=== PATIENT | male | born 1955 | race Caucasian/White ===

== ENCOUNTER 2021-10-14 21:50 | Observation (INO) | payer OTHER ==
[~2021-10-14] VITALS: Ht 180.3 cm; Wt 82.2 kg
[~2021-10-14 21:50] MED LIST: HYDACE5 PO; NAPR550 PO; OXYC5; Zithromax250 MG PO
[2021-10-14] MEDS ORDERED: Lisinopril2.5 MG PO (22:14)
[2021-10-14] MEDS ORDERED: PREGABALIN100 MG PO (22:15)
[2021-10-14] MEDS ORDERED: CYMBALTA30 M2 PO (22:15)
[2021-10-14] MEDS ORDERED: TAMSULOSIN HCL0.4 M1 PO (22:15)
[2021-10-14] MEDS ORDERED: TADALAFIL5 M1 PO (22:15)
[2021-10-14] MEDS ORDERED: METOPROLOL SUCC25 MG PO (22:15)
[2021-10-14 22:39] LABS: BASOPHILS ABSOLUTE AUTO 0.03 K/mm3 (0.00-0.23); BASOPHILS PERCENT AUTO 1 % (0-2); EOSINOPHILS ABSOLUTE AUTO 0.04 K/mm3 (0.00-0.68); EOSINOPHILS PERCENT AUTO 1 % (0-6); Hematocrit 35.5 % (37.0-53.0); Hemoglobin 12.1 g/dL (13.5-17.5); IMMATURE GRAN ABSOLUTE AUTO 0.04 K/mm3 (0.00-0.10); IMMATURE GRAN PERCENT AUTO 1 % (0-1); LYMPHOCYTES ABSOLUTE AUTO 1.66 K/mm3 (0.84-5.20); LYMPHOCYTES PERCENT AUTO 26 % (21-46); MONOCYTES ABSOLUTE AUTO 0.66 K/mm3 (0.16-1.47); MONOCYTES PERCENT AUTO 11 % (4-13); Mean Corpuscular HGB Conc 34.1 g/dL (31.5-36.5); Mean Corpuscular Volume 91 fL (80-100); Mean Platelet Volume 10.6 fL (9.1-12.4); NEUTROPHILS ABSOLUTE AUTO 3.85 K/mm3 (1.96-9.15); NEUTROPHILS PERCENT AUTO 61 % (41-73); Platelet Count 266 K/mm3 (150-400); RDW Coefficient Variation 14.9 % (11.7-14.2); RDW Standard Deviation 50.3 fL (35.1-46.3); White Blood Cell Count 6.28 K/mm3 (4.00-11.30)
[2021-10-14 23:08] LABS: Alanine Aminotransfer (ALT/SGP 45 U/L (12-78); Albumin, Blood 3.6 g/dL (3.4-5.0); Albumin/Globulin Ratio 0.9 (0.8-1.8); Alk Phos 69 U/L (50-136); Anion Gap 5 mmol/L (6-16); Aspartate Aminotrans (AST/SGOT 28 U/L (12-37); Bilirubin, Total 0.2 mg/dL (0.1-1.0); Blood Urea Nitrogen 9 mg/dL (8-24); Bun/Creatinine Ratio 11.8 (12.0-20.0); CO2, Blood 26 mmol/L (21-32); Calcium, Blood 8.7 mg/dL (8.5-10.1); Chloride, Blood 103 mmol/L (98-108); Creatinine, Blood 0.76 mg/dL (0.60-1.20); Ethanol (Alcohol), Blood, Med <3 mg/dL; Globulin, Blood 3.9 g/dL (2.2-4.0); Glomerular Filtration Rate 99 (60-); Glucose, Blood 115 mg/dL (70-99); Potassium, Blood 4.3 mmol/L (3.5-5.5); Sodium, Blood 134 mmol/L (136-145); Total Protein, Blood 7.5 g/dL (6.4-8.2)
[2021-10-15 00:02] LABS: U Amphetamine Screen Not Detected; U Barbituate Screen Not Detected; U Benzodiazapine Screen Not Detected; U Buprenorphine Screen Not Detected; U Cannabinoids Screen DETECTED; U Cocaine Screen Not Detected; U Methadone Screen Not Detected; U Methamphetamine Screen Not Detected; U Opiates Screen Not Detected; U Oxycodone Screen Not Detected; U Phencyclidine Screen Not Detected; U Propoxyphene Screen Not Detected
[2021-10-15 00:25] LABS: International Normalized Ratio 1.03; Prothrombin Time Results 10.8 Sec (9.7-11.5)
[2021-10-15 01:36] LABS: CHOL/HDL RATIO 2.7; Cholesterol 121 mg/dL (50-200); HDL Cholesterol 45 mg/dL (>39); LDL/HDL RATIO 1.1; Low Density Lipoprotein Chol 52 mg/dL (0-110); Triglycerides 122 mg/dL (30-160); Very Low Density Lipoprot Chol 24 mg/dL (6-32)
[2021-10-16 04:46] LABS: Hematocrit 37.5 % (37.0-53.0); Hemoglobin 12.4 g/dL (13.5-17.5)
[2021-10-16 05:09] LABS: Bun/Creatinine Ratio 11.4 (12.0-20.0); Creatinine, Blood 0.88 mg/dL (0.60-1.20); Potassium, Blood 4.5 mmol/L (3.5-5.5)
[2021-10-16] MEDS ORDERED: Acetaminophen325 M1 PO (15:32)
[2021-10-16] MEDS ORDERED: XARELTO15 MG PO (15:33)
[2021-10-16] MEDS ORDERED: ATOR80 PO (15:33)
== END 2021-10-16 16:16 | disposition home or self-care (01) ==
LOC: ER 21:50 → ERHOLD 21:51 → MEDS 10-15 13:00
PROVIDERS: Internal Medicine; Student in an Organized Health Care Education/Training Program; ADMIT Family Medicine
DX: I63.9 Cerebral infarction, unspecified (principal); R47.1 Dysarthria and anarthria; R20.0 Anesthesia of skin; I10 Essential (primary) hypertension; N40.0 Benign prostatic hyperplasia without lower urinary tract symptoms; I48.0 Paroxysmal atrial fibrillation; G81.91 Hemiplegia, unspecified affecting right dominant side; R47.81 Slurred speech; Z79.82 Long term (current) use of aspirin; F17.210 Nicotine dependence, cigarettes, uncomplicated; F10.11 Alcohol abuse, in remission
CPT/HCPCS: 36415; 70450; 70496; 70498; 70551; 80048; 80053; 80061; 83735; 85014; 85018; 85025; 85610; 85730; 92526; 92610; 93005; 93010; 93306; 96372; 97110; 97112; 97116; 97162; 97166; 99285-25; A9270; G0378; G0480; J1650; Q9967

== ENCOUNTER 2022-03-30 07:03 | Day surgery (SDC) | payer OTHER ==
[~2022-03-30] VITALS: Ht 177.8 cm; Wt 87.4 kg
[~2022-03-30 07:03] MED LIST changes: +ATOR80 PO; +Acetaminophen325 M1 PO; +CYMBALTA30 M2 PO; +Lisinopril2.5 MG PO; +METOPROLOL SUCC25 MG PO; +PREGABALIN100 MG PO; +TADALAFIL5 M1 PO; +TAMSULOSIN HCL0.4 M1 PO; +XARELTO15 MG PO
== END 2022-03-30 09:09 | disposition home or self-care (01) ==
LOC: ORSCSDS 07:03
PROVIDERS: Internal Medicine Gastroenterology
PROC: 0DJ08ZZ Inspection of Upper Intestinal Tract, Via Natural or Artificial Opening Endoscopic (ICD-10-PCS; principal; 2022-03-30 08:30)
DX: R93.3 Abnormal findings on diagnostic imaging of other parts of digestive tract (principal); Z86.73 Personal history of transient ischemic attack (TIA), and cerebral infarction without residual deficits; Z80.0 Family history of malignant neoplasm of digestive organs; K44.9 Diaphragmatic hernia without obstruction or gangrene; I10 Essential (primary) hypertension; I48.91 Unspecified atrial fibrillation; G47.33 Obstructive sleep apnea (adult) (pediatric); Z87.891 Personal history of nicotine dependence; J44.9 Chronic obstructive pulmonary disease, unspecified; F11.11 Opioid abuse, in remission; Z86.19 Personal history of other infectious and parasitic diseases; F10.10 Alcohol abuse, uncomplicated; Z79.01 Long term (current) use of anticoagulants; Z79.899 Other long term (current) drug therapy
CPT/HCPCS: J2704; J7120